=== PATIENT | female | born 2000 | race Hispanic/Latino ===

== ENCOUNTER 2019-01-18 06:49 | Emergency (ER) | payer SELFPAY ==
--- NOTE | 2019-01-18 08:21 | RAD REPORT ---
EXAM DESCRIPTION: CT - Head Brain Wo Cont - 01/18/2019 7:13 am CLINICAL HISTORY: Head injury with headache COMPARISON: None. TECHNIQUE: Computed axial tomography of the head was obtained. IV contrast was not requested. All CT scans are performed using dose optimization technique as appropriate and may include automated exposure control or mA/KV adjustment according to patient size. FINDINGS: An intracranial bleed is not seen . The ventricles are normal in caliber. No extra-axial fluid collection is noted. Fluid within the sinuses/ mastoids is not seen. IMPRESSION: No acute intracranial abnormality is seen. If patient's symptoms persist MRI of the bra in would be recommended.
--- NOTE | 2019-01-18 08:57 | RAD REPORT ---
EXAM DESCRIPTION: RAD - Knee Right 3 View - 01/18/2019 8:21 am CLINICAL HISTORY: Right knee pain status post injury FINDINGS: No fracture or dislocation is seen.
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
[2019-01-18] MEDS ORDERED: TETANUS & DIPHTHERIA TOX,ADULT 0.5 ML VIAL ONE (09:39)
== END 2019-01-18 09:39 | disposition home or self-care (01) ==
LOC: ER 06:49
DX: S00.81XA Abrasion of other part of head, initial encounter (principal); V49.40XA Driver injured in collision with unspecified motor vehicles in traffic accident, initial encounter; M25.561 Pain in right knee; Z23 Encounter for immunization
CPT/HCPCS: 70450; 90471; 90714; 99284